=== PATIENT | female | born 1980 | race Caucasian/White ===

== ENCOUNTER → 2019-04-02 | Outpatient (CLI) | payer OTHER ==
[2019-04-02 16:44] LABS: BASOPHILS # (AUTO) 0.1 (0.0-0.1); BASOPHILS % 0.4 % (0.0-1.0); EOSINOPHILS # (AUTO) 0.2 (0.0-0.4); EOSINOPHILS % 1.6 % (0.0-6.0); HEMATOCRIT 39.5 % (34.2-44.1); HEMOGLOBIN 13.4 g/dL (12.0-16.0); LYMPHOCYTES # (AUTO) 3.5 (1.0-3.2); LYMPHOCYTES % 25.5 % (18.0-39.1); MEAN CORPUSCULAR HEMOGLOBIN 28.2 pg (28-32); MEAN CORPUSCULAR HGB CONC 33.9 g/dL (31-35); MONOCYTES # (AUTO) 0.6 (0.2-0.8); MONOCYTES % 4.3 % (4.4-11.3); NEUTROPHILS # (AUTO) 9.2 (2.1-6.9); NEUTROPHILS % 67.9 % (38.7-80.0); PLATELET COUNT 270 x10e3/uL (140-360); RED BLOOD COUNT 4.76 x10e6/uL (3.6-5.1); RED CELL DISTRIBUTION WIDTH 13.8 % (11.7-14.4)
[2019-04-02 16:49] LABS: CLARITY,URINE HAZY (CLEAR); COLOR,URINE YELLOW (YELLOW)
[2019-04-02 16:50] LABS: BILIRUBIN,URINE NEGATIVE (NEGATIVE); KETONES,URINE NEGATIVE (NEGATIVE); LEUKOCYTE ESTERASE ,URINE 1+ (NEGATIVE); NITRITE,URINE NEGATIVE (NEGATIVE); PROTEIN,URINE DIPSTICK NEGATIVE (NEGATIVE); URINE UROBILINOGEN 0.2 mg/dL (0.2 - 1)
[2019-04-02 16:57] LABS: INR 1.09; PROTHROMBIN TIME 14.6 seconds (11.9-14.5)
[2019-04-02 16:58] LABS: PARTIAL THROMBOPLASTIN TIME 28.4 seconds (23.8-35.5)
[2019-04-02 17:02] LABS: ANION GAP 10.7 mmol/L (8-16); BLOOD UREA NITROGEN 5 mg/dL (7-26); BUN/CREATININE RATIO 7 (6-25); CALCIUM 9.4 mg/dL (8.4-10.2); CARBON DIOXIDE 27 mmol/L (22-29); CHLORIDE 105 mmol/L (98-107); CREATININE, SERUM 0.75 mg/dL (0.57-1.11); EST GLOMERULAR FILTRATION RATE > 60 ML/MIN (60-); GLUCOSE 88 mg/dL (74-118); POTASSIUM 3.7 mmol/L (3.5-5.1); SODIUM 139 mmol/L (136-145)
[2019-04-02 17:08] LABS: BACTERIA,URINE MODERATE /HPF; EPITHELIAL CELLS,URINE MODERATE /LPF; RBC,URINE 0-5 /HPF (0-5)
--- NOTE | 2019-04-02 17:28 | Diagnostic Imaging Report ---
EXAMINATION: CHEST 2 VIEWS INDICATION: Preoperative evaluation. ^HALLUX LIMITED RIGIDUS COMPARISON: None FINDINGS: TUBES and LINES: None. LUNGS: Lungs are mildly hypoinflated with bibasilar subsegmental atelectasis. There is no evidence of pneumonia or pulmonary edema. PLEURA: No pleural effusion or pneumothorax. HEART AND MEDIASTINUM: Cardiac size is mildly enlarged. BONES AND SOFT TISSUES: No acute osseous lesion. Soft tissues are unremarkable. UPPER ABDOMEN: No free air under the diaphragm. IMPRESSION: Mild cardiomegaly without acute decompensation. Signed by: Dr. Zane Ko M.D. on 04/02/2019 5:25 PM
== END ==
LOC: LAB 16:02
PROVIDERS: ATTEND Podiatrist
DX: Z01.818 Encounter for other preprocedural examination (principal); M20.22 Hallux rigidus, left foot; I51.7 Cardiomegaly
CPT/HCPCS: 36415; 71046; 80048; 81001; 84702; 85025; 85610; 85730; 93005

== ENCOUNTER → 2019-07-11 | Outpatient (CLI) | payer OTHER ==
[~2019-07-11] MED LIST: ADVAIR 500/501 EA INH; ALBUTEROL0.63 MG/3 INH; ASPIRIN81 MG PO; BREO IH; GABAPENTIN300 MG PO; METOPROLOL SUCC50 MG PO; NEXIUM40 MG PO
[2019-07-11 13:38] LABS: BASOPHILS % 0.3 % (0.0-1.0); EOSINOPHILS # (AUTO) 0.1 (0.0-0.4); EOSINOPHILS % 0.7 % (0.0-6.0); HEMATOCRIT 37.1 % (34.2-44.1); HEMOGLOBIN 12.5 g/dL (12.0-16.0); LYMPHOCYTES # (AUTO) 2.5 (1.0-3.2); LYMPHOCYTES % 16.3 % (18.0-39.1); MEAN CORPUSCULAR HGB CONC 33.7 g/dL (31-35); MEAN CORPUSCULAR VOLUME 83.2 fL (81-99); MONOCYTES # (AUTO) 0.5 (0.2-0.8); MONOCYTES % 3.5 % (4.4-11.3); NEUTROPHILS # (AUTO) 11.9 (2.1-6.9); NEUTROPHILS % 78.8 % (38.7-80.0); PLATELET COUNT 263 x10e3/uL (140-360); RED BLOOD COUNT 4.46 x10e6/uL (3.6-5.1); RED CELL DISTRIBUTION WIDTH 14.1 % (11.7-14.4)
[2019-07-11 13:52] LABS: INR 1.13; PARTIAL THROMBOPLASTIN TIME 30.2 seconds (23.8-35.5); PROTHROMBIN TIME 15.1 seconds (11.9-14.5)
[2019-07-11 13:59] LABS: ANION GAP 12.2 mmol/L (8-16); BLOOD UREA NITROGEN 7 mg/dL (7-26); BUN/CREATININE RATIO 10 (6-25); CALCIUM 8.8 mg/dL (8.4-10.2); CARBON DIOXIDE 27 mmol/L (22-29); CHLORIDE 103 mmol/L (98-107); CREATININE, SERUM 0.71 mg/dL (0.57-1.11); EST GLOMERULAR FILTRATION RATE > 60 ML/MIN (60-); GLUCOSE 111 mg/dL (74-118); POTASSIUM 3.2 mmol/L (3.5-5.1); SODIUM 139 mmol/L (136-145)
--- NOTE | 2019-07-11 14:19 | Diagnostic Imaging Report ---
Chest, 2 views, 07/11/2019. History: Preop, foot surgery. Comparison: 04/02/2019. Findings: The cardiac silhouette is mildly enlarged but the pulmonary vasculature is within normal limits. The lungs are clear without evidence of consolidation or pleural effusion. Small metallic structure is projected over the right atrium of uncertain etiology. There are no acute osseous or soft tissue abnormalities. Impression: Mild cardiomegaly without acute pulmonary abnormality. Signed by: Williams Abreu on 07/11/2019 2:16 PM
== END ==
LOC: RAD 05:00 → EDSTATUS 07-16 13:30
PROVIDERS: ATTEND Podiatrist
DX: Z01.818 Encounter for other preprocedural examination (principal); S86.312A Strain of muscle(s) and tendon(s) of peroneal muscle group at lower leg level, left leg, initial encounter; Z53.8 Procedure and treatment not carried out for other reasons
CPT/HCPCS: 36415; 71046; 80048; 84702; 85025; 85610; 85730; 93005

== ENCOUNTER → 2020-10-27 | Day surgery (SDC) | payer OTHER ==
--- NOTE | 2020-10-20 15:22 | Diagnostic Imaging Report ---
EXAMINATION: CHEST 2 VIEWS INDICATION: Pre-operative COMPARISON: Chest radiograph 07/11/2019 FINDINGS: LINES/TUBES:None LUNGS:The lungs are well-inflated. No focal consolidation or pulmonary edema. PLEURA:No pleural effusion or pneumothorax. MEDIASTINUM:The cardiomediastinal silhouette appears normal in size and shape. BONES/SOFT TISSUES:No acute osseous injury. ABDOMEN:No free air under the diaphragm. IMPRESSION: No focal pneumonia or pulmonary edema. Signed by: Tamara Field MD on 10/20/2020 3:18 PM
[2020-10-20 15:43] LABS: BASOPHILS # (AUTO) 0.1 (0.0-0.1); BASOPHILS % 0.4 % (0.0-1.0); EOSINOPHILS # (AUTO) 0.1 (0.0-0.4); EOSINOPHILS % 0.7 % (0.0-6.0); HEMATOCRIT 40.7 % (34.2-44.1); HEMOGLOBIN 13.2 g/dL (12.0-16.0); LYMPHOCYTES # (AUTO) 3.1 (1.0-3.2); LYMPHOCYTES % 22.3 % (18.0-39.1); MEAN CORPUSCULAR HGB CONC 32.4 g/dL (31-35); MEAN CORPUSCULAR VOLUME 83.4 fL (81-99); MONOCYTES # (AUTO) 0.7 (0.2-0.8); MONOCYTES % 4.9 % (4.4-11.3); NEUTROPHILS # (AUTO) 10.1 (2.1-6.9); NEUTROPHILS % 71.3 % (38.7-80.0); PLATELET COUNT 286 x10e3/uL (140-360); RED BLOOD COUNT 4.88 x10e6/uL (3.6-5.1)
[2020-10-20 15:47] LABS: CLARITY,URINE SL CLOUDY (CLEAR); COLOR,URINE STRAW (YELLOW)
[2020-10-20 15:48] LABS: BILIRUBIN,URINE NEGATIVE (NEGATIVE); KETONES,URINE NEGATIVE (NEGATIVE); LEUKOCYTE ESTERASE ,URINE TRACE (NEGATIVE); NITRITE,URINE NEGATIVE (NEGATIVE); PROTEIN,URINE DIPSTICK NEGATIVE (NEGATIVE); URINE UROBILINOGEN 0.2 mg/dL (0.2 - 1)
[2020-10-20 15:55] LABS: INR 1.15; PARTIAL THROMBOPLASTIN TIME 27.2 seconds (23.8-35.5); PROTHROMBIN TIME 15.3 seconds (11.9-14.5)
[2020-10-20 16:01] LABS: ANION GAP 12.6 mmol/L (8-16); BLOOD UREA NITROGEN 5 mg/dL (7-26); BUN/CREATININE RATIO 7 (6-25); CARBON DIOXIDE 26 mmol/L (22-29); CHLORIDE 104 mmol/L (98-107); CREATININE, SERUM 0.68 mg/dL (0.57-1.11); EST GLOMERULAR FILTRATION RATE > 60 ML/MIN (60-); GLUCOSE 91 mg/dL (74-118); POTASSIUM 3.6 mmol/L (3.5-5.1); SODIUM 139 mmol/L (136-145)
[~2020-10-27] MED LIST changes: +ALLEGRA ALLERG180 MG PO; +BUPIVACAINE HCL 0.5% INJ 30 ML VIAL INJ ONE; +CEFAZOLIN SOD 1 GM/NS 50ML 100 ML IV ONE; +CEFAZOLIN SOD 1 GM/NS 50ML 50 ML IV ONE; +DEXAMETHASONE SOD PHOS INJ 4 MG/ML VIAL ONE; +FENTANYL CITRATE/PF 100MCG/2 ML INJ ONE; +GLYCOPYRROLATE INJ 0.2 MG/ML VIAL ONE; +HYDROMORPHONE 1MG/1ML INJ ONE; +KETOROLAC TROMETHAMINE 30 MG/ML VIAL ONE; +LIDOCAINE HCL 1% LOCAL INJ 20 ML VIAL ONE; +MIDAZOLAM HCL 2 MG/2 ML VIAL ONE; +NEOSTIGMINE 1 MG/ML 10ML VIAL ONE; +ONDANSETRON HCL INJ 2MG/ML 2ML 2 MG/ML VIAL ONE; +PROPOFOL IV EMULSION 10 MG/ML 20 ML VIAL ONE; +ROCURONIUM BROMIDE 10 MG/ML 5ML VIAL IV ONE; +SEVOFLURANE INHAL SOLN 250 ML PEN BTL ONE
[2020-10-27 18:10] VITALS: BP 126/66
--- NOTE | 2020-11-01 04:03 | Operative Report ---
DATE OF PROCEDURE: 10/27/2020 SURGEON: Aguila Day DPM BLOOD DONOR RECRUITER SUPERVISOR: None. PREOPERATIVE DIAGNOSES: 1. Left lateral ankle instability. 2. Split tear of the peroneal brevis tendon of the left foot and ankle. POSTOPERATIVE DIAGNOSES: 1. Left lateral ankle instability. 2. Split tear of the peroneal brevis tendon of the left foot and ankle. PROCEDURES: 1. Modified Brostrom-Mccartney reconstruction of the left lateral ankle (anterior talofibular ligament) repair. 2. Repair of the torn peroneal brevis tendon of the left foot and ankle. 3. Posterior splint application to the left foot. 4. Repair of the peroneal longus tendon and the peroneal brevis tendon. FINDINGS: There was a split tear of the peroneal longus and peroneal brevis tendon. ANESTHESIA: General with a total of 30 mL of 1:1 mixture 1% lidocaine plain and 0.5% Marcaine plain. PATHOLOGY: None. ESTIMATED BLOOD LOSS: Less than 5 mL. COMPLICATIONS: None. GRAFTS AND IMPLANTS: None. INDICATIONS FOR THE PROCEDURE: The patient is a 39-year-old female with past medical history of dystonia with severe chronic pain to the left lateral ankle based. The patient also has a chronic pain and left ankle instability along with a tear of the peroneus brevis tendon, evidenced by MRI. At this time, due to the severity of the pain and the exhaustion of conservative treatment, this required surgical intervention. Therefore, all the risks and complications of the surgery were explained to the patient in detail including infection, pain, swelling numbness, bleeding, delayed healing, nonhealing, continued pain, neuritis, numbness, and need for further surgery. At this point, the patient was given opportunity to ask questions and all questions were answered in an informed manner. There were no guarantees applied or given. Therefore, the above-stated procedure was performed. NARRATIVE OF PROCEDURE: Preoperatively, the patient was identified as Miguelina Bach. The left foot and ankle was then marked and the areas of most intense pain was also marked. Prior to surgery, the patient was administered 3 g of Ancef. She was then taken to the OR and placed on the OR in supine position. After a successful general anesthetic, the patient was then placed in a lateral position with exposure to the left lateral ankle placed dorsally. After proper positioning, the left thigh tourniquet was applied and an appropriate time-out was performed with identification of the patient and the procedure, and then a left ankle was infiltrated with a total of 30 mL of 1:1 mixture of 1% lidocaine plain and 0.5% Marcaine plain. The left foot, ankle, and leg were then prepped and draped in the usual sterile manner. Attention was now directed to the posterolateral aspect of the left ankle along the peroneal tendon. At this time, a linear incision was made parallel overlying the peroneal tendons. Utilizing a 15-blade, incision was now deepened down to level of the subcutaneous tissue, being careful to identify and retract all vital neurovascular structures and to cauterize all vessels as needed. At this point, along the ankle region, the peroneus brevis tendon appears to be overlying the peroneus longus tendon at the level of the ankle joint with a noted split tear of the peroneus brevis tendon at this point. With careful dissection, at this time, the tendons were evaluated and isolated and at this time, vessels were cauterized as needed and the tendon was then re-approximated essentially and with a 3-0 Vicryl in a running subcuticular stitch. Other pathology of the tendon was noted to be fine at this point, other than the tear of the peroneal brevis tendon overlying our draping the peroneus longus tendon at the ankle joint region. After complete reapproximation, the tendon was gliding in a smooth position and at this point, with continued exploration of the tendon, no other pathology was identified at this point. The wound was then irrigated with copious amounts of normal saline and after complete irrigation, again with cauterization of vessels, the deep tissue was then reapproximated utilizing 3-0 Vicryl in a simple interrupted stitch and for skin closure, a 4-0 nylon was utilized in a simple interrupted stitch. Attention was now directed to the lateral aspect of the left ankle, in which there was previously marking of the lateral malleolus. At this time, a traditional curvilinear incision was made through the left lateral malleolar region extending anteromedially overlying the left anterior talofibular ligament and the dorsal medial foot. Utilizing the 15-blade, incision was deepened down to level of the subcutaneous tissue, being careful to identify and retract all vital neurovascular structures and to cauterize all vessels as needed. At this time, the fatty tissue was identified and was removed in toto for exposure of the soft tissue noted within the left lateral ankle. At this time, the peroneal tendon posteriorly was evaluated and the soft tissue was now transected to allow with tenotomy scissors. After transecting the soft tissue, one can evaluate the anterior talofibular ligament and at this time, this ligament appears to tenuous and stretched out. At this point, again vessels were cauterized as needed. At this time, I then proceeded with the foot. After complete exposure, wound was then irrigated with copious amounts of normal saline. The foot was moved to allow any excess fluid within the joint to be expressed out. At this time, the foot being in a dorsiflexed and everted position. I then reapproximated the soft tissue and anterior talofibular ligament and a [id number] stitch and with a retention stitch with a horizontal mattress stitch, extending all the way to the lateral aspect. I then continued with the foot in an everted position, I then reapproximated the soft tissue with the [id number] stitch and I then continued with the foot in a dorsiflexed and everted position. I then proceed with the Mccartney modification with a sjjyat-[id number] stitch extending through the extensor retinaculum to the anterior dorsal aspect of the soft tissue overlying the fibula. At this point, once the [id number] stitches had been placed, the foot was evaluated and at this time, an ankle was in a very stable position. The wound was then continued to be irrigated with copious amounts of saline and again vessels were cauterized as needed and for a deep closure, 3-0 Vicryl was utilized in a simple interrupted stitch and for skin closure, 4-0 nylon was utilized in a simple interrupted stitch. A Betadine-soaked adaptic and gauze along with a dry sterile compressive dressing was applied to the left foot, and again with continual eversion of the foot, released the tourniquet, capillary refill time was noted to all digits of 1 through 5 of the left foot. The patient was then placed a posterior splint application and will remain in this non-weight bearing position with the left foot everted and the patient will follow up with me in my office on Sunday. The patient did tolerate the procedure well, left the OR to the recovery room with vital signs stable and neurovascular status back to preoperative condition. ADAMS Izquierdo/GRIFFIN /[id number]
== END | disposition home or self-care (01) ==
LOC: OR 11:37
PROVIDERS: ATTEND Podiatrist
DX: M25.372 Other instability, left ankle (principal); S86.392A Other injury of muscle(s) and tendon(s) of peroneal muscle group at lower leg level, left leg, initial encounter; Z01.810 Encounter for preprocedural cardiovascular examination; Z01.812 Encounter for preprocedural laboratory examination; Z01.818 Encounter for other preprocedural examination; Z20.828 Contact with and (suspected) exposure to other viral communicable diseases; J45.909 Unspecified asthma, uncomplicated
CPT/HCPCS: 27675; 27698; 29515; 36415; 71046; 80048; 81003; 81025; 84702; 85025; 85610; 85730; 93005; J0690; J1100; J1170; J1885; J2001; J2250; J2405; J2704; J2710; J3010; U0002

== ENCOUNTER → 2021-07-20 | Day surgery (SDC) | payer OTHER ==
[2021-07-18 14:53] LABS: BASOPHILS # (AUTO) 0.1 (0.0-0.1); BASOPHILS % 0.4 % (0.0-1.0); EOSINOPHILS # (AUTO) 0.1 (0.0-0.4); HEMOGLOBIN 13.1 g/dL (12.0-16.0); LYMPHOCYTES # (AUTO) 3.2 (1.0-3.2); LYMPHOCYTES % 24.3 % (18.0-39.1); MEAN CORPUSCULAR HGB CONC 32.8 g/dL (31-35); MEAN CORPUSCULAR VOLUME 85.5 fL (81-99); MONOCYTES # (AUTO) 0.7 (0.2-0.8); NEUTROPHILS # (AUTO) 9.2 (2.1-6.9); PLATELET COUNT 268 x10e3/uL (140-360); RED BLOOD COUNT 4.68 x10e6/uL (3.6-5.1); RED CELL DISTRIBUTION WIDTH 13.9 % (11.7-14.4)
[2021-07-18 15:14] LABS: INR 1.15; PARTIAL THROMBOPLASTIN TIME 27.1 seconds (23.8-35.5); PROTHROMBIN TIME 14.9 seconds (11.9-14.5)
[2021-07-18 15:19] LABS: ANION GAP 13.8 mmol/L (8-16); CALCIUM 8.8 mg/dL (8.4-10.2); CREATININE, SERUM 0.71 mg/dL (0.57-1.11); POTASSIUM 3.8 mmol/L (3.5-5.1)
[2021-07-18 15:36] LABS: CLARITY,URINE CLEAR (CLEAR); COLOR,URINE YELLOW (YELLOW); LEUKOCYTE ESTERASE ,URINE 1+ (NEGATIVE)
[2021-07-18 15:37] LABS: KETONES,URINE NEGATIVE (NEGATIVE); NITRITE,URINE NEGATIVE (NEGATIVE); PROTEIN,URINE DIPSTICK NEGATIVE (NEGATIVE); URINE UROBILINOGEN 1 mg/dL (0.2 - 1)
[~2021-07-20] MED LIST changes: +BUPIVACAINE 0.25% 30ML SDV ONE; -BUPIVACAINE HCL 0.5% INJ 30 ML VIAL INJ ONE; -CEFAZOLIN SOD 1 GM/NS 50ML 100 ML IV ONE; -CEFAZOLIN SOD 1 GM/NS 50ML 50 ML IV ONE; -DEXAMETHASONE SOD PHOS INJ 4 MG/ML VIAL ONE; -GLYCOPYRROLATE INJ 0.2 MG/ML VIAL ONE; -HYDROMORPHONE 1MG/1ML INJ ONE; -KETOROLAC TROMETHAMINE 30 MG/ML VIAL ONE; -MIDAZOLAM HCL 2 MG/2 ML VIAL ONE; +MONTELUKAST SOD10 MG PO; -NEOSTIGMINE 1 MG/ML 10ML VIAL ONE; -ONDANSETRON HCL INJ 2MG/ML 2ML 2 MG/ML VIAL ONE; -PROPOFOL IV EMULSION 10 MG/ML 20 ML VIAL ONE; -ROCURONIUM BROMIDE 10 MG/ML 5ML VIAL IV ONE; -SEVOFLURANE INHAL SOLN 250 ML PEN BTL ONE; +SODIUM CHLORIDE 0.9% 50ML 100 ML ONE; +TRIHEXYPHENIDYL2 MG PO
[2021-07-20 16:25] VITALS: BP 113/69
== END | disposition home or self-care (01) ==
LOC: OR 10:52
PROVIDERS: ATTEND Podiatrist
DX: M20.22 Hallux rigidus, left foot (principal); M20.42 Other hammer toe(s) (acquired), left foot; M19.072 Primary osteoarthritis, left ankle and foot; M79.672 Pain in left foot; K21.9 Gastro-esophageal reflux disease without esophagitis; J45.909 Unspecified asthma, uncomplicated; I10 Essential (primary) hypertension; Z01.810 Encounter for preprocedural cardiovascular examination; Z01.812 Encounter for preprocedural laboratory examination; Z01.818 Encounter for other preprocedural examination; Z20.822 Contact with and (suspected) exposure to COVID-19
CPT/HCPCS: 28285; 28289; 36415; 71046; 80048; 81003; 84702; 85025; 85610; 85730; 93005; J0690; J2001; J3010; U0002

== ENCOUNTER → 2024-10-03 | Outpatient (REF) | payer OTHER ==
[~2024-10-03] MED LIST changes: -BUPIVACAINE 0.25% 30ML SDV ONE; -FENTANYL CITRATE/PF 100MCG/2 ML INJ ONE; -LIDOCAINE HCL 1% LOCAL INJ 20 ML VIAL ONE; -SODIUM CHLORIDE 0.9% 50ML 100 ML ONE
== END ==
LOC: RAD 15:29
PROVIDERS: ATTEND Internal Medicine Critical Care Medicine
DX: J45.909 Unspecified asthma, uncomplicated (principal)
CPT/HCPCS: 71046